=== PATIENT | male | born 1985 | race Two or more races ===

== ENCOUNTER 2020-11-05 21:17 | Emergency (ER) | payer SELFPAY ==
[~2020-11-05] VITALS: Ht 175.3 cm; Wt 86.2 kg
[2020-11-05 21:58] VITALS: BP 165/102
== END 2020-11-05 23:59 | disposition left against medical advice (07) ==
LOC: EDBD 21:17 → ER 21:20
DX: F41.9 Anxiety disorder, unspecified (principal); R94.31 Abnormal electrocardiogram [ECG] [EKG]; Z53.21 Procedure and treatment not carried out due to patient leaving prior to being seen by health care provider
CPT/HCPCS: 93005

== ENCOUNTER 2020-11-08 06:13 | Emergency (ER) | payer SELFPAY ==
[~2020-11-08] VITALS: Ht 165.1 cm; Wt 90.7 kg
[2020-11-08] MEDS ORDERED: cloNIDine HCL 0.1 MG TAB PO ONE (06:45)
[2020-11-08] MEDS ORDERED: SODIUM CHLORIDE 0.9% 1,000 ML IVB ONE (06:45)
[2020-11-08] MEDS ORDERED: LORazepam 2MG/ML-1ML VIAL IV ONE (06:45)
[2020-11-08 08:00] VITALS: BP 150/101
[2020-11-08 08:08] LABS: Basophils # (auto) 0.1 10 ^3/uL (0-0.2); Basophils % (auto) 0.9 % (0.0-2.0); Eosinophils # (auto) 0 10 ^3/uL (0-0.8); Eosinophils % (auto) 0.3 % (0.0-7.0); Hematocrit 42.2 % (41.0-53.0); Hemoglobin 14.2 g/dL (13.5-17.5); Lymphocytes # (auto) 1.7 10 ^3/uL (0.4-5.4); Lymphocytes % (auto) 16.3 % (10.0-50.0); Mean Corpuscular Hemoglobin 27.6 pg (28.0-32.0); Mean Corpuscular Hgb Conc. 33.6 g/dL (32.0-36.0); Monocytes # (auto) 0.9 10 ^3/uL (0-1.3); Monocytes % (auto) 8.1 % (0.0-12.0); Neutrophils # (auto) 7.8 10 ^3/uL (1.6-8.6); Neutrophils % (auto) 74.4 % (37.0-80.0); Nucleated Red Blood Cells % 0.1 %; Platelet Count (auto) 297 10^3/uL (140-450); Red Blood Cells 5.15 10^6/uL (4.5-5.90); Red Cell Distribution Width 16.8 % (11.8-14.3); White Blood Cell 10.5 10^3/uL (4.4-10.8)
[2020-11-08 08:31] LABS: Albumin 3.6 g/dL (3.4-5.0); Calcium 7.9 mg/dL (8.5-10.1); Potassium 3.4 mmol/L (3.5-5.1)
[2020-11-08 08:36] LABS: BUN/Creatinine Ratio 13.5; Bilirubin, Total 1.4 mg/dL (0.2-1.0); Total Protein 7.6 g/dL (6.4-8.2)
== END 2020-11-08 09:34 | disposition left against medical advice (07) ==
LOC: ER 06:13 → EDBD 06:13 → ER 09:34
DX: R07.89 Other chest pain (principal); E87.6 Hypokalemia; F10.10 Alcohol abuse, uncomplicated; I10 Essential (primary) hypertension; F12.10 Cannabis abuse, uncomplicated; F15.10 Other stimulant abuse, uncomplicated; Z53.29 Procedure and treatment not carried out because of patient's decision for other reasons
CPT/HCPCS: 36415; 71045; 80053; 83735; 84484; 85025; 85049; 93005; 96361; 96374; 99285; J2060; J7030

== ENCOUNTER → 2020-11-10 20:55 | Emergency (ER) | payer SELFPAY ==
[~2020-11-10] VITALS: Ht 167.6 cm; Wt 85.7 kg
[~2020-11-10 20:55] MED LIST: cloNIDine HCL 0.1 MG TAB PO ONE
[2020-11-10 20:57] VITALS: BP 172/119
[2020-11-10 21:17] LABS: Urine WBC None Seen /hpf (0 - 3)
[2020-11-10 21:32] LABS: Urine Bacteria NONE SEEN /hpf (None Seen); Urine Blood Negative /uL (Negative)
[2020-11-10 21:35] LABS: Basophils # (auto) 0.1 10 ^3/uL (0-0.2); Basophils % (auto) 0.8 % (0.0-2.0); Eosinophils # (auto) 0.3 10 ^3/uL (0-0.8); Eosinophils % (auto) 2.2 % (0.0-7.0); Hematocrit 43.7 % (41.0-53.0); Hemoglobin 15.1 g/dL (13.5-17.5); Lymphocytes # (auto) 5.3 10 ^3/uL (0.4-5.4); Lymphocytes % (auto) 40.3 % (10.0-50.0); Mean Corpuscular Hemoglobin 28.1 pg (28.0-32.0); Mean Corpuscular Hgb Conc. 34.5 g/dL (32.0-36.0); Mean Corpuscular Volume 81.5 fL (80.0-100.0); Monocytes # (auto) 1.1 10 ^3/uL (0-1.3); Monocytes % (auto) 8.5 % (0.0-12.0); Neutrophils # (auto) 6.4 10 ^3/uL (1.6-8.6); Neutrophils % (auto) 48.2 % (37.0-80.0); Red Blood Cells 5.37 10^6/uL (4.5-5.90); Red Cell Distribution Width 17.4 % (11.8-14.3); White Blood Cell 13.2 10^3/uL (4.4-10.8)
[2020-11-10 21:44] LABS: Amphetamine Screen, Urine POSITIVE (NEGATIVE); Barbiturate Scree,Urine NEGATIVE (NEGATIVE); Benzodiazephine Screen, Urine NEGATIVE (NEGATIVE); Cannabinoid Screen, Urine NEGATIVE (NEGATIVE); Cocaine Screen, Urine NEGATIVE (NEGATIVE); Opiate Scree,Urine NEGATIVE (NEGATIVE); Phencyclidine Screen, Urine NEGATIVE (NEGATIVE)
[2020-11-10 21:53] LABS: Albumin 4.3 g/dL (3.4-5.0); Calcium 8.9 mg/dL (8.5-10.1); Potassium 3.3 mmol/L (3.5-5.1)
[2020-11-10 21:58] LABS: BUN/Creatinine Ratio 6.6; Bilirubin, Total 1.8 mg/dL (0.2-1.0)
== END | disposition left against medical advice (07) ==
LOC: ER 20:55
DX: I10 Essential (primary) hypertension (principal); R42 Dizziness and giddiness; R06.02 Shortness of breath; Z53.21 Procedure and treatment not carried out due to patient leaving prior to being seen by health care provider
CPT/HCPCS: 36415; 71045; 80053; 80307; 81001; 84484; 85025; 85049; 93005